=== PATIENT | female | born 1990 | race Caucasian/White ===

== ENCOUNTER 2021-06-23 10:33 | Outpatient (CLI) | payer OTHER ==
--- NOTE | 2021-06-23 13:16 | MRI Report ---
PROCEDURE: Knee RT W/O INDICATIONS: KNEE PAIN TECHNIQUE: Noncontrast sagittal PD fast spin echo and T2 fast spin echo with fat saturation, sagittal 3-D gradie nt sequence with fat saturation; coronal T1 spin echo and PD fast spin echo with fat saturation, and axial PD fast spin echo with fat saturation through the knee. COMPARISON: None. Findings: Medial meniscus: No surface communication/tear. Degeneration of the posterior horn. Lateral meniscus: No surface communication/tear. LIGAMENTS/TENDONS: Patellar tendon: Intact. Distal quadriceps tendon: Intact. Hoffa's fat pad: No evidence of fibrosis or mass. PCL: Intact. ACL: Intact. Lateral collateral ligament complex: No significant abnormality. Popliteus tendon: Intact. Medial collateral ligament: No significant abnormality.. MARROW: No significant abnormality. CARTILAGE: No significant chondromalacia or delamination injury. Muscles: No significant edema or atrophy. Joint effusion/Francisco's cyst: Small joint effusion. Trace fluid in the popliteal fossa. Subcutaneous soft tissues: No significant edema. IMPRESSION: 1.No evidence of internal derangement. Reviewed by: Moshe Stoll MD on 06/23/2021 1:14 PM PDT Approved by: Moshe Stoll MD on 06/23/2021 1:14 PM PDT Station ID: [id number]
== END 2021-06-23 10:34 | disposition home or self-care (01) ==
LOC: DI 10:33
PROVIDERS: ATTEND Student in an Organized Health Care Education/Training Program
DX: M25.561 Pain in right knee (principal)

== ENCOUNTER 2022-10-13 12:27 | Emergency (ER) | payer OTHER ==
[2022-10-13] MEDS ORDERED: KETOROLAC 30 MG/ML VIAL IM STA (14:08)
--- NOTE | 2022-10-13 14:09 | ED Physician Documentation ---
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 She has taken naproxen without relief of symptoms. No saddle anesthesia, loss of bowel or bladder function. No fevers. No history of injection drug use or cancer. Unable to get seen by [facility] so was advised to come to the emergency department. 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 : None HEENT: None Psych: Depression Musculoskeletal: None Derm: None - Past Surgical History Past Surgical History: No - Present Medications Home Medications: Ambulatory Orders Medication Instructions Recorded Confirmed Cyclobenzaprine [Flexeril] 10 mg PO TID PRN #20 tablet 10/13/22 Ibuprofen [Motrin] 600 mg PO Q6H PRN #30 tab 10/13/22 buPROPion HCL [Wellbutrin Xl] 300 mg PO DAILY 10/13/22 10/13/22 - Allergies Allergies/Adverse Reactions: Allergies Allergy/AdvReac Type Severity Reaction Status Date / Time No Known Drug Allergies Allergy Verified 10/13/22 12:39 - Social History Does the pt smoke?: No Smoking Status: Never smoker Does the pt drink ETOH?: No Does the pt have substance abuse?: No - Immunizations Immunizations are current?: Yes - POLST Patient has POLST: No PD ED PE NORMAL - General General: Alert and oriented X 3, No acute distress - Respiratory Respiratory: Clear bilaterally - Abdomen Abdomen: Normal bowel sounds, Soft, Non tender, Non distended - Back Back: No CVA TTP, No spinal TTP, Other (No midline lumbar tenderness though there is some right-sided paraspinous tenderness. Some palpable tightness and early spasm felt with forward flexion. Motor strength 5 of 5. No paresthesias. Mildly antalgic gait.) - Derm Derm: Normal color - Extremities Extremities: No deformity - Neuro Neuro: Alert and oriented X 3 Eye Opening: Spontaneous Motor: Obeys Commands Verbal: Oriented GCS Score: 15 Results - Vitals Vitals: Vital Signs - 24 hr 10/13/22 12:30 Temperature 36.7 C Heart Rate 78 Respiratory 20 Rate Blood Pressure 127/80 O2 Saturation 98 Oxygen O2 Source Room air - Labs Labs: Laboratory Tests 10/13/22 14:11 Urine HCG, Qual NEGATIVE PD Medical Decision Making - ED course Complexity details: reviewed results, d/w patient ED course: 32-year-old female who is not presents emergency department for evaluation of right-sided back pain that began several days ago 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 She is taken naproxen without relief of symptoms. Clinically there are no red flags on exam. However on exam she was noted to have rather tense right paraspinous lumbar muscles with reduced forward flexion. Believe she would benefit from a short course of Flexeril and scheduled doses of ibuprofen. Will follow closely with [facility] for follow- up. Usual emergent return precautions worsening symptoms was discussed. Departure - Departure Disposition: 01 Home, Self Care Clinical Impression: Right-sided low back pain without sciatica Qualifiers: Chronicity: acute Qualified Code(s): M54.50 - Low back pain, unspecified Condition: Stable Record reviewed to determine appropriate education?: Yes Instructions: ED Sprain Strain Lumbar, Flexeril Prescriptions: Cyclobenzaprine [Flexeril] 10 mg PO TID PRN #20 tablet PRN Reason: Spasms Ibuprofen [Motrin] 600 mg PO Q6H PRN #30 tab PRN Reason: Pain Comments: As discussed at the bedside you likely sprained or strained your right low back muscles. These types of injuries typically begin to get better after 1 to 2 weeks. I recommended that you take scheduled ibuprofen 600 mg 3 times a day with food. Alternate with 500 mg of Tylenol also taken 3 times a day. Applying ice to your low back for 10 minutes 3 times a day over the next several days should be helpful. Gentle stretching can also be used. You do seem to have some tightness and early spasm in the muscles of your low back and for this I have prescribed Flexeril. Important you follow closely with [facility]. it is important you continue if your symptoms or not markedly better after 1 to 2 weeks you may benefit from referral to physical therapy or consideration of a back pain specialist. Until your back pain improves I recommend that you do not lift, push or pull heavier than 10 pounds while at work.
[2022-10-13 14:24] LABS: HCG UR QUAL NEGATIVE
[2022-10-13 15:18] VITALS: BP 129/86
== END 2022-10-13 15:05 | disposition home or self-care (01) ==
LOC: ED 12:27
DX: M54.50 Low back pain, unspecified (principal)
CPT/HCPCS: 81025; 96372; 99283

== ENCOUNTER 2022-11-09 00:18 | Emergency (ER) | payer OTHER ==
[2022-11-09 00:38] VITALS: BP 129/87; O2SAT 97
[2022-11-09] MEDS ORDERED: LIDOCAINE 1% 2 ML VIAL SUBQ STA (00:50)
[2022-11-09] MEDS ORDERED: TETANUS/DIPHTHERIA/PERTUSSIS 0.5 ML SYRINGE IM ONE (00:51)
[2022-11-09] MEDS ORDERED: lidocaine 1% 20 ML MDV SUBQ ONE (00:51)
--- NOTE | 2022-11-09 01:03 | ED Physician Documentation ---
History of Present Illness - Stated complaint Stated Complaint: L HAND INJ - Chief complaint Chief Complaint: Ext Problem - History obtained from History obtained from: Patient - Additonal information Additional information: 32-year-old woman, up-to-date on tetanus, presents with left hand laceration after grabbing a falling knife in the kitchen. No other injuries. 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 : None HEENT: None Psych: Depression Musculoskeletal: None Derm: None - Past Surgical History Past Surgical History: No - Present Medications Home Medications: Ambulatory Orders Medication Instructions Recorded Confirmed Ibuprofen [Motrin] 600 mg PO Q6H PRN #30 tab 10/13/22 11/09/22 buPROPion HCL [Wellbutrin Xl] 300 mg PO DAILY 10/13/22 11/09/22 - Allergies Allergies/Adverse Reactions: Allergies Allergy/AdvReac Type Severity Reaction Status Date / Time No Known Drug Allergies Allergy Verified 11/09/22 00:32 - Social History Does the pt smoke?: No Smoking Status: Never smoker Does the pt drink ETOH?: No Does the pt have substance abuse?: No - Immunizations Immunizations are current?: Yes - POLST Patient has POLST: No PD ED PE NORMAL - Vitals Vital signs reviewed: Yes - General General: Alert and oriented X 3, No acute distress, Well developed/nourished - HEENT HEENT: Atraumatic, PERRL, EOMI - Derm Derm: Normal color, Warm and dry, Other (Laceration left hand, hemostatic) Results - Vitals Vitals: Vital Signs - 24 hr 11/09/22 00:27 Temperature 37 C Heart Rate 88 Respiratory 16 Rate Blood Pressure 129/87 H O2 Saturation 97 Oxygen O2 Source Room air Procedures - Laceration (location) Hand left Length in cm: 1.5 Wound type: Linear Neurovascular status: Sensory intact, Motor intact, Vascular intact Anesthesia: Lidocaine 1% Wound preparation: Irrigated copiously NS, Wound explored, To the base Skin layer closure: Nylon, Size #-0 - enter number (4), Sutures - enter # (4) Other: Patient tolerated well, No complications, Dressing applied, Tetanus UTD PD Medical Decision Making - ED course ED course: 32-year-old woman presents with laceration to left hand, repaired without difficulty. Bandage applied and return precautions given. Plan to have sutures removed in 14 days. [place] Return precautions given. Departure - Departure Disposition: 01 Home, Self Care Clinical Impression: Laceration of hand Condition: Good Instructions: ED Laceration Hand Comments: You were seen in the emergency department for laceration of hand. You had 4 stitches placed. [place] 14 days and return to the emergency department if you have any new or worsening symptoms or other concerns. Forms: PCP List
== END 2022-11-09 02:11 | disposition home or self-care (01) ==
LOC: ED 00:18
DX: S61.412A Laceration without foreign body of left hand, initial encounter (principal); W26.0XXA Contact with knife, initial encounter
CPT/HCPCS: 12001; 99283